=== PATIENT | female | born 1950 | race Caucasian/White ===

== ENCOUNTER 2018-01-05 10:26 | Emergency (ER) | payer OTHER ==
[~2018-01-05] VITALS: Ht 157.5 cm; Wt 111.5 kg
[2018-01-05] MEDS ORDERED: ULTRAM50 MG PO (13:20)
[2018-01-05 13:47] VITALS: BP 138/89
== END 2018-01-05 13:49 | disposition home or self-care (01) ==
LOC: EME 10:26
DX: M79.671 Pain in right foot (principal); E11.9 Type 2 diabetes mellitus without complications; E78.5 Hyperlipidemia, unspecified; I10 Essential (primary) hypertension; Z88.5 Allergy status to narcotic agent
CPT/HCPCS: 73610; 73630; 99281; 99284